=== PATIENT | male | born 1960 | race Caucasian/White ===

== ENCOUNTER 2018-03-27 17:52 | Inpatient (IN) | payer OTHER ==
[2018-03-27] MEDS: PIPER-TAZO 3.375 GM IV (PMX) 100 ML IVPB (23:32)
[2018-03-27 23:45] LABS: ADD MAN DIFF? NO
[2018-03-27 23:46] LABS: BASOPHILS % 0.2 % (0.0-2.0); EOSINOPHILS # 0.1 10^3/ul (0.0-0.5); HEMATOCRIT 36.2 % (42.0-52.0); HEMOGLOBIN 12.2 g/dl (14.0-18.0); LYMPHOCYTES # 1.5 10^3/ul (0.8-2.9); LYMPHOCYTES % 14.3 % (15.0-51.0); MEAN CORPUSCULAR HEMOGLOBIN 30.1 pg (29.0-33.0); MEAN CORPUSCULAR HGB CONC 33.7 g/dl (32.0-37.0); MEAN CORPUSCULAR VOLUME 89.4 fl (82.0-101.0); MEAN PLATELET VOLUME 9.8 fl (7.4-10.4); MONOCYTES % 9.6 % (0.0-11.0); NEUTROPHIL # 7.6 10^3/ul (1.6-7.5); NEUTROPHILS % 74.3 % (39.0-77.0); PLATELET COUNT 265 10^3/UL (140-415); RED BLOOD COUNT 4.05 10^6/ul (4.70-6.10); RED CELL DISTRIBUTION WIDTH 11.6 % (11.5-14.5)
[2018-03-27 23:46] LABS: WHITE BLOOD COUNT 10.3 10^3/ul (4.8-10.8)
[2018-03-28 00:04] LABS: PROTIME 13.3 Sec (11.9-14.9)
[2018-03-28 00:05] LABS: PARTIAL THROMBOPLASTIN TIME 34.5 Sec (25.0-35.0)
[2018-03-28 00:06] LABS: ALANINE AMINOTRANSFERASE 63 IU/L (13-69); ALBUMIN 3.5 g/dl (3.3-4.9); ALBUMIN/GLOBULIN RATIO 0.94; ALKALINE PHOSPHATASE 246 IU/L (42-121); ANION GAP 12 (8-16); ASPARTATE AMINO TRANSFERASE 32 IU/L (15-46); BILIRUBIN,INDIRECT 0.3 mg/dl (0-1.1); BILIRUBIN,TOTAL 0.3 mg/dl (0.2-1.3); BLOOD UREA NITROGEN 23 mg/dl (7-20); CALCIUM 9.1 mg/dl (8.4-10.2); CARBON DIOXIDE 28 mmol/L (21-31); CHLORIDE 99 mmol/L (97-110); CREATININE 0.86 mg/dl (0.61-1.24); GLUCOSE 313 mg/dl (70-220); POTASSIUM 4.2 mmol/L (3.5-5.1); SODIUM 135 mmol/L (135-144); TOTAL PROTEIN 7.2 g/dl (6.1-8.1)
[2018-03-28 00:32] LABS: TROPONIN-I < 0.012 ng/ml (0.000-0.120)
[2018-03-28 02:37] LABS: LACTIC ACID 1.1 mmol/L (0.5-2.0)
[2018-03-28] MEDS ORDERED: ONDANSETRON 4 MG INJ IV (03:30)
[2018-03-28] MEDS ORDERED: DEXTROSE 50% 50 ML SYRINGE IV ×2 (04:00)
[2018-03-28] MEDS: hydrALAzine 20 MG INJ IV ×2 (04:00→13:25)
[2018-03-28] MEDS ORDERED: GLUCOSE GEL 15 GRAM TUBE BUCCAL (04:00)
[2018-03-28] MEDS ORDERED: GLUCAGON 1 MG INJ IM (04:00)
[2018-03-28] MEDS ORDERED: GLUCOSE GEL 15 GRAM TUBE PO ×2 (04:00)
[2018-03-28] MEDS: INSULIN GLARGINE [LANtus] 3 ML PEN SC (04:13)
[2018-03-28] MEDS: morphine 4 MG/ML VIAL IV ×3 (04:38→21:08)
[2018-03-28 05:17] LABS: ADD MAN DIFF? NO
[2018-03-28 05:28] LABS: WHITE BLOOD COUNT 9.7 10^3/ul (4.8-10.8)
[2018-03-28 05:28] LABS: BASOPHILS % 0.2 % (0.0-2.0); EOSINOPHILS # 0.1 10^3/ul (0.0-0.5); EOSINOPHILS % 1.4 % (0.0-7.0); HEMATOCRIT 35.3 % (42.0-52.0); HEMOGLOBIN 11.7 g/dl (14.0-18.0); LYMPHOCYTES # 1.7 10^3/ul (0.8-2.9); LYMPHOCYTES % 17.8 % (15.0-51.0); MEAN CORPUSCULAR HEMOGLOBIN 29.6 pg (29.0-33.0); MEAN CORPUSCULAR HGB CONC 33.1 g/dl (32.0-37.0); MEAN CORPUSCULAR VOLUME 89.4 fl (82.0-101.0); MONOCYTES % 10.7 % (0.0-11.0); NEUTROPHIL # 6.8 10^3/ul (1.6-7.5); NEUTROPHILS % 69.6 % (39.0-77.0); PLATELET COUNT 256 10^3/UL (140-415); RED BLOOD COUNT 3.95 10^6/ul (4.70-6.10); RED CELL DISTRIBUTION WIDTH 11.5 % (11.5-14.5)
[2018-03-28] MEDS ORDERED: PENDING SANTYL ORDER FOR WOUND CARE XX (05:30)
[2018-03-28 06:19] LABS: ALANINE AMINOTRANSFERASE 52 IU/L (13-69); ALBUMIN 2.8 g/dl (3.3-4.9); ALBUMIN/GLOBULIN RATIO 0.87; ALKALINE PHOSPHATASE 221 IU/L (42-121); ANION GAP 14 (8-16); ASPARTATE AMINO TRANSFERASE 26 IU/L (15-46); BILIRUBIN,INDIRECT 0.3 mg/dl (0-1.1); BILIRUBIN,TOTAL 0.3 mg/dl (0.2-1.3); BLOOD UREA NITROGEN 22 mg/dl (7-20); CALCIUM 8.9 mg/dl (8.4-10.2); CARBON DIOXIDE 28 mmol/L (21-31); CHLORIDE 101 mmol/L (97-110); CHOL/HDL RATIO 3.5 RATIO; CHOLESTEROL 118 mg/dl (100-200); CREATININE 0.76 mg/dl (0.61-1.24); GLUCOSE 257 mg/dl (70-220); HDL CHOLESTEROL 33 mg/dl (28-71); LDL CHOLESTEROL,CALCULATED 61 mg/dl; POTASSIUM 4.5 mmol/L (3.5-5.1); SODIUM 138 mmol/L (135-144); TRIGLYCERIDES 118 mg/dl (0-149)
[2018-03-28] MEDS ORDERED: VANCOMYCIN IV PER PHARMACY XX (06:30)
[2018-03-28] MEDS ORDERED: INSULIN GLARGINE [LANtus] 3 ML PEN SC ×2 (08:00)
[2018-03-28] MEDS: CEFEPIME 1GM/50 ML (PMX) 50 ML IVPB (08:23)
[2018-03-28] MEDS: INSULIN ASPART [NOVOLOG] 3 ML PEN SC ×7 (08:41→21:06)
[2018-03-28] MEDS: VANCOMYCIN 2 GM in SOD CHLORIDE 0.9% 500 ML IVPB (09:14)
[2018-03-28] MEDS: AMLODIPINE 10 MG TAB PO (11:56)
[2018-03-28] MEDS ORDERED: INSULIN ASPART [NOVOLOG] 3 ML PEN SC ×2 (12:00→18:00)
[2018-03-28 12:46] LABS: HEMOGLOBIN A1C 11.4 % (0-5.9)
[2018-03-28] MEDS ORDERED: metroNIDAZOLE 500 MG/NS (PMX) 100 ML IVPB (14:00)
[2018-03-28] MEDS: PIPER-TAZO 3.375 GM IV (PMX) 100 ML IVPB ×2 (14:22→22:44)
[2018-03-28] MEDS: BENAZEPRIL 20 MG TAB PO (16:32)
[2018-03-28] MEDS: VANCOMYCIN 1.25 GM in SOD CHLORIDE 0.9% 250 ML IVPB (16:33)
[2018-03-29] MEDS: VANCOMYCIN 1.25 GM in SOD CHLORIDE 0.9% 250 ML IVPB ×3 (01:13→18:26)
[2018-03-29] MEDS: ACCU-CHEK XX (02:00)
[2018-03-29] MEDS: ACETAMINOPHEN 500 MG TAB PO (02:25)
[2018-03-29] MEDS: PIPER-TAZO 3.375 GM IV (PMX) 100 ML IVPB ×2 (06:04→13:30)
[2018-03-29 08:05] LABS: ADD MAN DIFF? NO
[2018-03-29 08:06] LABS: BASOPHILS % 0.3 % (0.0-2.0); EOSINOPHILS # 0.1 10^3/ul (0.0-0.5); EOSINOPHILS % 0.6 % (0.0-7.0); HEMATOCRIT 33.2 % (42.0-52.0); HEMOGLOBIN 10.8 g/dl (14.0-18.0); LYMPHOCYTES # 1.8 10^3/ul (0.8-2.9); LYMPHOCYTES % 17.8 % (15.0-51.0); MEAN CORPUSCULAR HEMOGLOBIN 29.9 pg (29.0-33.0); MEAN CORPUSCULAR HGB CONC 32.5 g/dl (32.0-37.0); MEAN PLATELET VOLUME 9.6 fl (7.4-10.4); MONOCYTE # 1.3 10^3/ul (0.3-0.9); MONOCYTES % 13.1 % (0.0-11.0); NEUTROPHIL # 6.8 10^3/ul (1.6-7.5); NEUTROPHILS % 67.9 % (39.0-77.0); PLATELET COUNT 264 10^3/UL (140-415); RED BLOOD COUNT 3.61 10^6/ul (4.70-6.10); RED CELL DISTRIBUTION WIDTH 11.8 % (11.5-14.5)
[2018-03-29 08:26] LABS: ANION GAP 13 (8-16); BLOOD UREA NITROGEN 35 mg/dl (7-20); CALCIUM 8.2 mg/dl (8.4-10.2); CARBON DIOXIDE 27 mmol/L (21-31); CHLORIDE 103 mmol/L (97-110); CREATININE 1.42 mg/dl (0.61-1.24); GLUCOSE 241 mg/dl (70-220); MAGNESIUM 2.1 mg/dl (1.7-2.5); PHOSPHORUS 5.5 mg/dl (2.5-4.9); POTASSIUM 4.7 mmol/L (3.5-5.1); SODIUM 138 mmol/L (135-144)
[2018-03-29 08:34] LABS: VANCOMYCIN,TROUGH 20.3 ug/ml (10.0-20.0)
[2018-03-29] MEDS: BENAZEPRIL 20 MG TAB PO (09:00)
[2018-03-29] MEDS: AMLODIPINE 10 MG TAB PO (09:00)
[2018-03-29] MEDS: INSULIN ASPART [NOVOLOG] 3 ML PEN SC ×7 (09:04→20:55)
[2018-03-29] MEDS: INSULIN GLARGINE [LANtus] 3 ML PEN SC (09:05)
[2018-03-29] MEDS: SODIUM HYPOCHLORITE 1/40% 1L IRRIG IRR (09:33)
[2018-03-29] MEDS: SOD CHLORIDE 0.9% 1,000 ML IV ×2 (11:39→18:26)
[2018-03-29] MEDS ORDERED: ATROPINE 1 MG/10 ML SYRINGE IV (14:30)
[2018-03-29] MEDS ORDERED: CEFTRIAXONE 1 GM/50 ML (PMX) 50 ML IVPB (14:30)
[2018-03-29] MEDS ORDERED: FENTAnyl 50 MCG/ML VIAL IV ×2 (14:30)
[2018-03-29] MEDS ORDERED: ONDANSETRON 4 MG INJ IV (14:30)
[2018-03-29] MEDS ORDERED: MEPERIDINE 25 MG INJ IV (14:30)
[2018-03-29] MEDS ORDERED: DIPHENHYDRAMINE 50 MG INJ IV (14:30)
[2018-03-29] MEDS ORDERED: hydrALAzine 20 MG INJ IV (14:30)
[2018-03-29] MEDS ORDERED: HYDROmorphONE (0.2 MG/ML) 10ML SYG IV ×3 (14:30)
[2018-03-29] MEDS ORDERED: LABETALOL HCL 20MG INJ IV (14:30)
[2018-03-29] MEDS ORDERED: MIDAZOLAM 1 MG/ML 2 ML INJ IV (14:30)
[2018-03-29] MEDS ORDERED: EPHEDrine SULFATE 50 MG/5 ML SYG IV (14:30)
[2018-03-29] MEDS ORDERED: OXYCODONE/ACETAMINOPHEN (5/325) TAB PO ×2 (14:30)
[2018-03-29] MEDS ORDERED: morphine (1 MG/ML) 10ML SYRINGE IV ×3 (14:30)
[2018-03-29] MEDS ORDERED: ROCURONIUM 50 MG INJ (14:56)
[2018-03-29] MEDS ORDERED: NEOSTIGMINE 3 MG/3 ML SYRINGE (14:56)
[2018-03-29] MEDS ORDERED: LIDOCAINE 2% (SDV) 5 ML INJ (14:56)
[2018-03-29] MEDS ORDERED: GLYCOPYRROLATE 0.4 MG INJ (14:56)
[2018-03-29] MEDS ORDERED: PROPOFOL 20 ML (14:56)
[2018-03-29] MEDS ORDERED: MIDAZOLAM 1 MG/ML 2 ML INJ (14:57)
[2018-03-29] MEDS ORDERED: FENTAnyl 50 MCG/ML VIAL (14:57)
[2018-03-29] MEDS ORDERED: DEXAMETHASONE 4 MG/ML 1 ML INJ (14:57)
[2018-03-29] MEDS ORDERED: ONDANSETRON 4 MG INJ (14:59)
[2018-03-29] MEDS ORDERED: SUCCINYLCHOLINE CHLORIDE 100 MG/5 ML SYG IV (14:59)
[2018-03-29] MEDS: POLYMYXIN/BACITRACIN 1L IRRIG (15:40)
[2018-03-29] MEDS ORDERED: SUGAMMADEX SODIUM 200 MG/2 ML VIAL IV (16:13)
[2018-03-29] MEDS: hydrALAzine 20 MG INJ IV (18:21)
[2018-03-29] MEDS: CEFTRIAXONE 1 GM/50 ML (PMX) 50 ML IVPB (20:51)
[2018-03-30] MEDS: ACCU-CHEK XX (02:00)
[2018-03-30] MEDS: SOD CHLORIDE 0.9% 1,000 ML IV ×3 (02:19→18:53)
[2018-03-30 05:28] LABS: ADD MAN DIFF? NO
[2018-03-30 05:30] LABS: WHITE BLOOD COUNT 9.4 10^3/ul (4.8-10.8)
[2018-03-30 05:30] LABS: BASOPHILS % 0.1 % (0.0-2.0); HEMATOCRIT 35.4 % (42.0-52.0); HEMOGLOBIN 11.6 g/dl (14.0-18.0); LYMPHOCYTES # 0.8 10^3/ul (0.8-2.9); LYMPHOCYTES % 8.4 % (15.0-51.0); MEAN CORPUSCULAR HEMOGLOBIN 29.9 pg (29.0-33.0); MEAN CORPUSCULAR HGB CONC 32.8 g/dl (32.0-37.0); MEAN CORPUSCULAR VOLUME 91.2 fl (82.0-101.0); MEAN PLATELET VOLUME 9.7 fl (7.4-10.4); MONOCYTE # 0.3 10^3/ul (0.3-0.9); MONOCYTES % 2.7 % (0.0-11.0); NEUTROPHIL # 8.3 10^3/ul (1.6-7.5); NEUTROPHILS % 88.4 % (39.0-77.0); PLATELET COUNT 308 10^3/UL (140-415); RED BLOOD COUNT 3.88 10^6/ul (4.70-6.10); RED CELL DISTRIBUTION WIDTH 11.7 % (11.5-14.5)
[2018-03-30 05:51] LABS: ANION GAP 15 (8-16); BLOOD UREA NITROGEN 40 mg/dl (7-20); CALCIUM 8.4 mg/dl (8.4-10.2); CARBON DIOXIDE 24 mmol/L (21-31); CHLORIDE 105 mmol/L (97-110); CREATININE 1.25 mg/dl (0.61-1.24); GLUCOSE 283 mg/dl (70-220); MAGNESIUM 2.2 mg/dl (1.7-2.5); PHOSPHORUS 5.5 mg/dl (2.5-4.9); POTASSIUM 4.5 mmol/L (3.5-5.1); SODIUM 139 mmol/L (135-144)
[2018-03-30] MEDS: VANCOMYCIN 1.25 GM in SOD CHLORIDE 0.9% 250 ML IVPB ×2 (06:32→18:53)
[2018-03-30] MEDS: SODIUM HYPOCHLORITE 1/40% 1L IRRIG IRR (07:48)
[2018-03-30] MEDS: INSULIN ASPART [NOVOLOG] 3 ML PEN SC ×7 (09:09→20:28)
[2018-03-30] MEDS: INSULIN GLARGINE [LANtus] 3 ML PEN SC (09:09)
[2018-03-30] MEDS: BENAZEPRIL 20 MG TAB PO ×2 (09:14→20:23)
[2018-03-30] MEDS: AMLODIPINE 10 MG TAB PO (09:14)
[2018-03-30] MEDS: ACETAMINOPHEN 500 MG TAB PO (11:56)
[2018-03-30] MEDS: morphine 4 MG/ML VIAL IV (17:00)
[2018-03-30] MEDS: CEFTRIAXONE 1 GM/50 ML (PMX) 50 ML IVPB (21:38)
[2018-03-30] MEDS ORDERED: CEPASTAT LOZENGE MT (21:40)
[2018-03-31] MEDS: ACCU-CHEK XX (02:19)
[2018-03-31] MEDS: SOD CHLORIDE 0.9% 1,000 ML IV ×4 (02:39→20:34)
[2018-03-31 05:15] LABS: ADD MAN DIFF? NO
[2018-03-31 05:23] LABS: WHITE BLOOD COUNT 10.4 10^3/ul (4.8-10.8)
[2018-03-31 05:23] LABS: BASOPHILS % 0.2 % (0.0-2.0); EOSINOPHILS % 0.1 % (0.0-7.0); HEMATOCRIT 34.2 % (42.0-52.0); HEMOGLOBIN 11.1 g/dl (14.0-18.0); LYMPHOCYTES % 9.2 % (15.0-51.0); MEAN CORPUSCULAR HEMOGLOBIN 29.8 pg (29.0-33.0); MEAN CORPUSCULAR HGB CONC 32.5 g/dl (32.0-37.0); MEAN CORPUSCULAR VOLUME 91.9 fl (82.0-101.0); MEAN PLATELET VOLUME 9.7 fl (7.4-10.4); MONOCYTE # 0.3 10^3/ul (0.3-0.9); MONOCYTES % 2.6 % (0.0-11.0); NEUTROPHIL # 9.1 10^3/ul (1.6-7.5); NEUTROPHILS % 87.4 % (39.0-77.0); PLATELET COUNT 312 10^3/UL (140-415); RED BLOOD COUNT 3.72 10^6/ul (4.70-6.10); RED CELL DISTRIBUTION WIDTH 11.7 % (11.5-14.5)
[2018-03-31 05:42] LABS: ANION GAP 13 (8-16); BLOOD UREA NITROGEN 42 mg/dl (7-20); CALCIUM 8.4 mg/dl (8.4-10.2); CARBON DIOXIDE 25 mmol/L (21-31); CHLORIDE 106 mmol/L (97-110); GLUCOSE 259 mg/dl (70-220); MAGNESIUM 2.2 mg/dl (1.7-2.5); POTASSIUM 5.4 mmol/L (3.5-5.1); SODIUM 139 mmol/L (135-144)
[2018-03-31] MEDS: VANCOMYCIN 1.25 GM in SOD CHLORIDE 0.9% 250 ML IVPB ×2 (06:32→22:40)
[2018-03-31] MEDS: SODIUM HYPOCHLORITE 1/40% 1L IRRIG IRR (09:00)
[2018-03-31] MEDS: AMLODIPINE 10 MG TAB PO (09:36)
[2018-03-31] MEDS: BENAZEPRIL 20 MG TAB PO ×2 (09:36→20:26)
[2018-03-31] MEDS: INSULIN GLARGINE [LANtus] 3 ML PEN SC (09:41)
[2018-03-31] MEDS: INSULIN ASPART [NOVOLOG] 3 ML PEN SC ×7 (09:42→20:30)
[2018-03-31] MEDS: LINAGLIPTIN 5 MG TABLET PO (11:52)
[2018-03-31] MEDS: metFORMIN 500 MG TAB PO (17:49)
[2018-03-31 18:33] LABS: VANCOMYCIN,TROUGH 17.1 ug/ml (10.0-20.0)
[2018-03-31] MEDS: CEFTRIAXONE 1 GM/50 ML (PMX) 50 ML IVPB (20:24)
[2018-04-01] MEDS: ACCU-CHEK XX (02:10)
[2018-04-01 05:49] LABS: ADD MAN DIFF? NO
[2018-04-01 05:55] LABS: WHITE BLOOD COUNT 11.9 10^3/ul (4.8-10.8)
[2018-04-01 05:55] LABS: BASOPHILS % 0.3 % (0.0-2.0); EOSINOPHILS # 0.1 10^3/ul (0.0-0.5); EOSINOPHILS % 1.1 % (0.0-7.0); HEMATOCRIT 32.7 % (42.0-52.0); HEMOGLOBIN 10.6 g/dl (14.0-18.0); LYMPHOCYTES # 2.8 10^3/ul (0.8-2.9); LYMPHOCYTES % 23.3 % (15.0-51.0); MEAN CORPUSCULAR HEMOGLOBIN 29.4 pg (29.0-33.0); MEAN CORPUSCULAR HGB CONC 32.4 g/dl (32.0-37.0); MEAN CORPUSCULAR VOLUME 90.8 fl (82.0-101.0); MEAN PLATELET VOLUME 9.6 fl (7.4-10.4); MONOCYTE # 1.2 10^3/ul (0.3-0.9); MONOCYTES % 9.7 % (0.0-11.0); NEUTROPHIL # 7.7 10^3/ul (1.6-7.5); NEUTROPHILS % 64.7 % (39.0-77.0); PLATELET COUNT 343 10^3/UL (140-415); RED CELL DISTRIBUTION WIDTH 11.7 % (11.5-14.5)
[2018-04-01 06:35] LABS: ANION GAP 10 (8-16); BLOOD UREA NITROGEN 38 mg/dl (7-20); CALCIUM 8.1 mg/dl (8.4-10.2); CARBON DIOXIDE 26 mmol/L (21-31); CHLORIDE 109 mmol/L (97-110); CREATININE 1.18 mg/dl (0.61-1.24); GLUCOSE 163 mg/dl (70-220); MAGNESIUM 2.1 mg/dl (1.7-2.5); PHOSPHORUS 3.6 mg/dl (2.5-4.9); POTASSIUM 4.1 mmol/L (3.5-5.1); SODIUM 141 mmol/L (135-144)
[2018-04-01] MEDS: SOD CHLORIDE 0.9% 1,000 ML IV ×3 (08:12→21:11)
[2018-04-01] MEDS: INSULIN ASPART [NOVOLOG] 3 ML PEN SC ×7 (08:50→21:00)
[2018-04-01] MEDS: metFORMIN 500 MG TAB PO ×2 (08:52→18:06)
[2018-04-01] MEDS: INSULIN GLARGINE [LANtus] 3 ML PEN SC (08:52)
[2018-04-01] MEDS: SODIUM HYPOCHLORITE 1/40% 1L IRRIG IRR (09:00)
[2018-04-01] MEDS: AMLODIPINE 10 MG TAB PO (09:16)
[2018-04-01] MEDS: LINAGLIPTIN 5 MG TABLET PO (09:16)
[2018-04-01] MEDS: BENAZEPRIL 20 MG TAB PO ×2 (09:16→21:06)
[2018-04-01] MEDS: VANCOMYCIN 1.25 GM in SOD CHLORIDE 0.9% 250 ML IVPB ×2 (10:54→23:53)
[2018-04-01] MEDS: CEFTRIAXONE 1 GM/50 ML (PMX) 50 ML IVPB (21:06)
[2018-04-02] MEDS: ACCU-CHEK XX (01:27)
[2018-04-02] MEDS: SOD CHLORIDE 0.9% 1,000 ML IV ×3 (01:43→20:00)
[2018-04-02 05:33] LABS: ADD MAN DIFF? NO
[2018-04-02 05:55] LABS: WHITE BLOOD COUNT 9.5 10^3/ul (4.8-10.8)
[2018-04-02 05:55] LABS: BASOPHILS % 0.4 % (0.0-2.0); EOSINOPHILS # 0.2 10^3/ul (0.0-0.5); EOSINOPHILS % 1.8 % (0.0-7.0); HEMATOCRIT 33.3 % (42.0-52.0); HEMOGLOBIN 10.7 g/dl (14.0-18.0); LYMPHOCYTES # 2.3 10^3/ul (0.8-2.9); LYMPHOCYTES % 23.6 % (15.0-51.0); MEAN CORPUSCULAR HEMOGLOBIN 29.7 pg (29.0-33.0); MEAN CORPUSCULAR HGB CONC 32.1 g/dl (32.0-37.0); MEAN CORPUSCULAR VOLUME 92.5 fl (82.0-101.0); MEAN PLATELET VOLUME 9.5 fl (7.4-10.4); MONOCYTE # 1.1 10^3/ul (0.3-0.9); MONOCYTES % 11.6 % (0.0-11.0); NEUTROPHIL # 5.9 10^3/ul (1.6-7.5); NEUTROPHILS % 61.6 % (39.0-77.0); PLATELET COUNT 350 10^3/UL (140-415); RED CELL DISTRIBUTION WIDTH 11.7 % (11.5-14.5)
[2018-04-02 06:21] LABS: ANION GAP 13 (8-16); BLOOD UREA NITROGEN 32 mg/dl (7-20); CALCIUM 8.4 mg/dl (8.4-10.2); CARBON DIOXIDE 27 mmol/L (21-31); CHLORIDE 108 mmol/L (97-110); CREATININE 1.13 mg/dl (0.61-1.24); GLUCOSE 106 mg/dl (70-220); MAGNESIUM 1.8 mg/dl (1.7-2.5); PHOSPHORUS 4.2 mg/dl (2.5-4.9); POTASSIUM 4.2 mmol/L (3.5-5.1); SODIUM 144 mmol/L (135-144)
[2018-04-02] MEDS: INSULIN ASPART [NOVOLOG] 3 ML PEN SC ×7 (08:30→21:00)
[2018-04-02] MEDS: SODIUM HYPOCHLORITE 1/40% 1L IRRIG IRR (09:00)
[2018-04-02] MEDS: INSULIN GLARGINE [LANtus] 3 ML PEN SC (09:48)
[2018-04-02] MEDS: AMLODIPINE 10 MG TAB PO (09:49)
[2018-04-02] MEDS: LINAGLIPTIN 5 MG TABLET PO (09:49)
[2018-04-02] MEDS: metFORMIN 500 MG TAB PO ×2 (09:49→18:01)
[2018-04-02] MEDS: BENAZEPRIL 20 MG TAB PO ×2 (09:50→21:23)
[2018-04-02] MEDS: TERAZOSIN 1 MG CAP PO ×2 (11:30→21:23)
[2018-04-02] MEDS: morphine 4 MG/ML VIAL IV (12:38)
[2018-04-02] MEDS: hydrALAzine 20 MG INJ IV ×2 (12:53→23:09)
[2018-04-02] MEDS: VANCOMYCIN 1.25 GM in SOD CHLORIDE 0.9% 250 ML IVPB ×2 (12:54→23:08)
[2018-04-02] MEDS: HEPARIN (10 UNITS/ML) 5ML SYG IV (15:00)
[2018-04-02 19:54] LABS: ADD UMIC NO; UR ASCORBIC ACID NEGATIVE (NEGATIVE); UR BILIRUBIN (Dip) NEGATIVE (NEGATIVE); UR BLOOD (Dip) NEGATIVE (NEGATIVE); UR CLARITY CLEAR (CLEAR); UR COLOR STRAW (YELLOW); UR GLUCOSE (Dip) 1+ mg/dL (NEGATIVE); UR KETONES (Dip) NEGATIVE (NEGATIVE); UR LEUKOCYTE ESTERASE (Dip) NEGATIVE Leu/ul (NEGATIVE); UR NITRITE (Dip) NEGATIVE (NEGATIVE); UR SPECIFIC GRAVITY (Dip) 1.009 (1.003-1.030); UR TOTAL PROTEIN (Dip) NEGATIVE (NEGATIVE); UR UROBILINOGEN (Dip) NEGATIVE (NEGATIVE)
[2018-04-03] MEDS: ACCU-CHEK XX (02:00)
[2018-04-03] MEDS: SOD CHLORIDE 0.9% 1,000 ML IV ×2 (05:18→12:22)
[2018-04-03 06:20] LABS: ADD MAN DIFF? NO
[2018-04-03 06:29] LABS: BASOPHILS % 0.4 % (0.0-2.0); EOSINOPHILS # 0.1 10^3/ul (0.0-0.5); EOSINOPHILS % 1.7 % (0.0-7.0); HEMATOCRIT 31.9 % (42.0-52.0); HEMOGLOBIN 10.5 g/dl (14.0-18.0); LYMPHOCYTES # 1.7 10^3/ul (0.8-2.9); MEAN CORPUSCULAR HEMOGLOBIN 30.3 pg (29.0-33.0); MEAN CORPUSCULAR HGB CONC 32.9 g/dl (32.0-37.0); MEAN CORPUSCULAR VOLUME 92.2 fl (82.0-101.0); MEAN PLATELET VOLUME 9.5 fl (7.4-10.4); MONOCYTES % 11.4 % (0.0-11.0); NEUTROPHIL # 5.5 10^3/ul (1.6-7.5); NEUTROPHILS % 65.8 % (39.0-77.0); PLATELET COUNT 315 10^3/UL (140-415); RED BLOOD COUNT 3.46 10^6/ul (4.70-6.10); RED CELL DISTRIBUTION WIDTH 11.6 % (11.5-14.5)
[2018-04-03 06:29] LABS: WHITE BLOOD COUNT 8.4 10^3/ul (4.8-10.8)
[2018-04-03 07:23] LABS: ANION GAP 10 (8-16); BLOOD UREA NITROGEN 30 mg/dl (7-20); CALCIUM 8.3 mg/dl (8.4-10.2); CARBON DIOXIDE 29 mmol/L (21-31); CHLORIDE 108 mmol/L (97-110); CREATININE 1.27 mg/dl (0.61-1.24); GLUCOSE 134 mg/dl (70-220); MAGNESIUM 1.8 mg/dl (1.7-2.5); PHOSPHORUS 4.7 mg/dl (2.5-4.9); POTASSIUM 4.1 mmol/L (3.5-5.1); SODIUM 143 mmol/L (135-144)
[2018-04-03] MEDS: INSULIN ASPART [NOVOLOG] 3 ML PEN SC ×7 (08:15→20:33)
[2018-04-03] MEDS: INSULIN GLARGINE [LANtus] 3 ML PEN SC (08:21)
[2018-04-03] MEDS: AMLODIPINE 10 MG TAB PO (08:29)
[2018-04-03] MEDS: metFORMIN 500 MG TAB PO ×2 (08:29→17:45)
[2018-04-03] MEDS: TERAZOSIN 1 MG CAP PO ×2 (08:29→20:31)
[2018-04-03] MEDS: BENAZEPRIL 20 MG TAB PO ×2 (08:30→20:30)
[2018-04-03] MEDS: LINAGLIPTIN 5 MG TABLET PO (08:30)
[2018-04-03] MEDS: SODIUM HYPOCHLORITE 1/40% 1L IRRIG IRR (08:31)
[2018-04-03] MEDS ORDERED: VANCOMYCIN 1 GM 250 ML IVPB (11:00)
[2018-04-03] MEDS ORDERED: VANCOMYCIN 1.25 GM in SOD CHLORIDE 0.9% 250 ML IVPB (11:00)
[2018-04-03] MEDS: VANCOMYCIN 750 MG in DEXTROSE 5% 150 ML IVPB ×2 (11:27→22:48)
[2018-04-03] MEDS: ACETAMINOPHEN 325 MG TAB PO (17:04)
[2018-04-03] MEDS: HEPARIN 5,000 UNIT/0.5 ML VIAL SC (20:35)
[2018-04-04] MEDS: ACCU-CHEK XX (01:36)
[2018-04-04] MEDS: SOD CHLORIDE 0.9% 1,000 ML IV ×2 (03:43→08:22)
[2018-04-04 05:55] LABS: ADD MAN DIFF? NO
[2018-04-04 06:11] LABS: BASOPHILS % 0.3 % (0.0-2.0); EOSINOPHILS # 0.2 10^3/ul (0.0-0.5); EOSINOPHILS % 2.3 % (0.0-7.0); HEMATOCRIT 32.1 % (42.0-52.0); HEMOGLOBIN 10.3 g/dl (14.0-18.0); LYMPHOCYTES # 2.1 10^3/ul (0.8-2.9); LYMPHOCYTES % 23.6 % (15.0-51.0); MEAN CORPUSCULAR HEMOGLOBIN 29.3 pg (29.0-33.0); MEAN CORPUSCULAR HGB CONC 32.1 g/dl (32.0-37.0); MEAN CORPUSCULAR VOLUME 91.5 fl (82.0-101.0); MEAN PLATELET VOLUME 9.5 fl (7.4-10.4); MONOCYTE # 0.9 10^3/ul (0.3-0.9); MONOCYTES % 9.8 % (0.0-11.0); NEUTROPHIL # 5.7 10^3/ul (1.6-7.5); NEUTROPHILS % 63.3 % (39.0-77.0); PLATELET COUNT 309 10^3/UL (140-415); RED BLOOD COUNT 3.51 10^6/ul (4.70-6.10); RED CELL DISTRIBUTION WIDTH 11.8 % (11.5-14.5)
[2018-04-04 06:11] LABS: WHITE BLOOD COUNT 8.9 10^3/ul (4.8-10.8)
[2018-04-04 06:19] LABS: MAGNESIUM 1.7 mg/dl (1.7-2.5)
[2018-04-04 06:19] LABS: PHOSPHORUS 4.7 mg/dl (2.5-4.9)
[2018-04-04 06:26] LABS: ANION GAP 11 (8-16); BLOOD UREA NITROGEN 32 mg/dl (7-20); CALCIUM 8.5 mg/dl (8.4-10.2); CARBON DIOXIDE 28 mmol/L (21-31); CHLORIDE 107 mmol/L (97-110); GLUCOSE 132 mg/dl (70-220); POTASSIUM 3.8 mmol/L (3.5-5.1); SODIUM 142 mmol/L (135-144)
[2018-04-04] MEDS: LINAGLIPTIN 5 MG TABLET PO (08:12)
[2018-04-04] MEDS: AMLODIPINE 10 MG TAB PO (08:13)
[2018-04-04] MEDS: metFORMIN 500 MG TAB PO ×2 (08:13→17:17)
[2018-04-04] MEDS: TERAZOSIN 1 MG CAP PO ×2 (08:13→20:11)
[2018-04-04] MEDS: BENAZEPRIL 20 MG TAB PO ×2 (08:13→20:11)
[2018-04-04] MEDS: INSULIN ASPART [NOVOLOG] 3 ML PEN SC ×7 (08:15→20:15)
[2018-04-04] MEDS: HEPARIN 5,000 UNIT/0.5 ML VIAL SC ×2 (08:20→20:17)
[2018-04-04] MEDS: INSULIN GLARGINE [LANtus] 3 ML PEN SC (08:20)
[2018-04-04] MEDS: SODIUM HYPOCHLORITE 1/40% 1L IRRIG IRR (09:00)
[2018-04-04] MEDS: VANCOMYCIN 750 MG in DEXTROSE 5% 150 ML IVPB (11:16)
[2018-04-04] MEDS: CEFTRIAXONE 1 GM/50 ML (PMX) 50 ML IVPB (14:58)
[2018-04-04] MEDS: DAPTOMYCIN IVPB (19:43)
[2018-04-04] MEDS: SOD CHLORIDE 0.9% IVPB (19:43)
[2018-04-04] MEDS: hydrALAzine 20 MG INJ IV (21:48)
[2018-04-04] MEDS ORDERED: AMPICILLIN 1 GM/NS (PMX) 50 ML IVPB (22:00)
[2018-04-05] MEDS: ACCU-CHEK XX (01:09)
[2018-04-05] MEDS: SOD CHLORIDE 0.9% 1,000 ML IV (04:43)
[2018-04-05 07:03] LABS: ANION GAP 9 (8-16); BLOOD UREA NITROGEN 30 mg/dl (7-20); CALCIUM 8.3 mg/dl (8.4-10.2); CARBON DIOXIDE 29 mmol/L (21-31); CHLORIDE 108 mmol/L (97-110); CREATININE 1.63 mg/dl (0.61-1.24); GLUCOSE 107 mg/dl (70-220); POTASSIUM 3.9 mmol/L (3.5-5.1); SODIUM 142 mmol/L (135-144)
[2018-04-05 07:33] LABS: CREATINE KINASE 25 IU/L (23-200)
[2018-04-05] MEDS: BENAZEPRIL 20 MG TAB PO (08:15)
[2018-04-05] MEDS: INSULIN ASPART [NOVOLOG] 3 ML PEN SC ×7 (08:15→20:26)
[2018-04-05] MEDS: AMLODIPINE 10 MG TAB PO (08:16)
[2018-04-05] MEDS: LINAGLIPTIN 5 MG TABLET PO (08:16)
[2018-04-05] MEDS: metFORMIN 500 MG TAB PO (08:16)
[2018-04-05] MEDS: INSULIN GLARGINE [LANtus] 3 ML PEN SC (08:17)
[2018-04-05] MEDS: HEPARIN 5,000 UNIT/0.5 ML VIAL SC ×2 (08:18→20:26)
[2018-04-05] MEDS: SODIUM HYPOCHLORITE 1/40% 1L IRRIG IRR (08:18)
[2018-04-05] MEDS: NIFEdipine (XL) 60 MG TAB PO (13:30)
[2018-04-05] MEDS: DAPTOMYCIN IVPB (17:49)
[2018-04-05] MEDS: SOD CHLORIDE 0.9% IVPB (17:49)
[2018-04-05] MEDS: TERAZOSIN 1 MG CAP PO (20:24)
[2018-04-06] MEDS: SOD CHLORIDE 0.9% 1,000 ML IV ×2 (00:22→03:36)
[2018-04-06] MEDS: ACCU-CHEK XX (02:00)
[2018-04-06 06:47] LABS: ANION GAP 9 (8-16); BLOOD UREA NITROGEN 33 mg/dl (7-20); CALCIUM 8.6 mg/dl (8.4-10.2); CARBON DIOXIDE 29 mmol/L (21-31); CHLORIDE 108 mmol/L (97-110); CREATININE 1.61 mg/dl (0.61-1.24); GLUCOSE 103 mg/dl (70-220); SODIUM 142 mmol/L (135-144)
[2018-04-06] MEDS: INSULIN ASPART [NOVOLOG] 3 ML PEN SC ×2 (08:15→08:19)
[2018-04-06] MEDS: NIFEdipine (XL) 90 MG TAB PO (08:17)
[2018-04-06] MEDS: LINAGLIPTIN 5 MG TABLET PO (08:18)
[2018-04-06] MEDS: INSULIN GLARGINE [LANtus] 3 ML PEN SC (08:21)
[2018-04-06] MEDS: HEPARIN 5,000 UNIT/0.5 ML VIAL SC (08:22)
[2018-04-06] MEDS: SODIUM HYPOCHLORITE 1/40% 1L IRRIG IRR (08:22)
== END 2018-04-06 13:25 | disposition home health service (06) | DRG 617 ==
LOC: MS2 04-02 22:42 → FTE 17:52 → MS1 03-28 00:47
PROC: 0Y6M0Z9 Detachment at Right Foot, Partial 1st Ray, Open Approach (ICD-10-PCS; principal; 2018-03-29 15:28)
PROC: 0Y6M0ZB Detachment at Right Foot, Partial 2nd Ray, Open Approach (ICD-10-PCS; 2018-03-29 15:28)
PROC: 0Y6M0ZC Detachment at Right Foot, Partial 3rd Ray, Open Approach (ICD-10-PCS; 2018-03-29 15:28)
PROC: 0Y6M0ZD Detachment at Right Foot, Partial 4th Ray, Open Approach (ICD-10-PCS; 2018-03-29 15:28)
PROC: 0Y6M0ZF Detachment at Right Foot, Partial 5th Ray, Open Approach (ICD-10-PCS; 2018-03-29 15:28)
PROC: 02HV33Z Insertion of Infusion Device into Superior Vena Cava, Percutaneous Approach (ICD-10-PCS; 2018-03-29 15:28)
DX: E11.621 Type 2 diabetes mellitus with foot ulcer (principal); M86.171 Other acute osteomyelitis, right ankle and foot; L03.115 Cellulitis of right lower limb; N17.9 Acute kidney failure, unspecified; E11.65 Type 2 diabetes mellitus with hyperglycemia; B95.61 Methicillin susceptible Staphylococcus aureus infection as the cause of diseases classified elsewhere; B95.2 Enterococcus as the cause of diseases classified elsewhere; I16.0 Hypertensive urgency; I10 Essential (primary) hypertension; E11.42 Type 2 diabetes mellitus with diabetic polyneuropathy; N40.0 Benign prostatic hyperplasia without lower urinary tract symptoms; L97.511 Non-pressure chronic ulcer of other part of right foot limited to breakdown of skin; E66.9 Obesity, unspecified; Z68.36 Body mass index [BMI] 36.0-36.9, adult; Z79.4 Long term (current) use of insulin; Z91.19 Patient's noncompliance with other medical treatment and regimen; Z87.891 Personal history of nicotine dependence
CPT/HCPCS: 36415; 36569; 71045; 73630; 73718; 76700; 76937; 80048; 80053; 80061; 80202; 81003; 82550; 82962; 83036; 83605; 83735; 84100; 84484; 85025; 85610; 85730; 87040; 87070; 87075; 87102; 87116; 88307; 88311; 93005; 96374; 97116; 97162; 97530; 99285-25